=== PATIENT | female | born 1950 | race Caucasian/White ===

== ENCOUNTER 2020-11-19 12:43 | Outpatient (CLI) | payer MEDICARE | END 2020-11-19 12:44 | disposition home or self-care (01) | LOC: BICMAMMO 12:43 | PROVIDERS: ATTEND Family Medicine | DX: Z12.31 Encounter for screening mammogram for malignant neoplasm of breast (principal); Z13.820 Encounter for screening for osteoporosis; N95.9 Unspecified menopausal and perimenopausal disorder; M85.851 Other specified disorders of bone density and structure, right thigh; M85.852 Other specified disorders of bone density and structure, left thigh | CPT/HCPCS: 77063; 77067; 77080 ==

== ENCOUNTER 2022-10-15 09:21 | Outpatient (CLI) | payer MEDICARE | END 2022-10-15 09:22 | disposition home or self-care (01) | LOC: RAD 09:21 | PROVIDERS: ATTEND Family Medicine | DX: M25.561 Pain in right knee (principal); M41.86 Other forms of scoliosis, lumbar region; M25.551 Pain in right hip; M17.11 Unilateral primary osteoarthritis, right knee; M47.816 Spondylosis without myelopathy or radiculopathy, lumbar region | CPT/HCPCS: 72100; 81001 ==